=== PATIENT | male | born 1965 | race Caucasian/White ===

== ENCOUNTER 2017-08-26 07:39 | Day surgery (SDC) | payer BC ==
[2017-08-26] MEDS ORDERED: PROPOFOL 20 ML ONE ×2 (07:50)
[2017-08-26] MEDS ORDERED: LIDOCAINE HCL/PF 2% SDV 5ML VIAL ONE (07:51)
[2017-08-26 08:01] VITALS: BMI 35.8
[2017-08-26 10:14] VITALS: BP 132/80; PULSE 72; TEMP 98.4
== END 2017-08-26 10:07 | disposition home or self-care (01) ==
LOC: FASU-ENDO 07:39
PROVIDERS: ATTEND Internal Medicine Gastroenterology
PROC: 0DJD8ZZ Inspection of Lower Intestinal Tract, Via Natural or Artificial Opening Endoscopic (ICD-10-PCS; principal; 2017-08-26 09:03)
DX: Z12.11 Encounter for screening for malignant neoplasm of colon (principal); K57.30 Diverticulosis of large intestine without perforation or abscess without bleeding